=== PATIENT | male | born 1985 | race African-American/Black ===

== ENCOUNTER 2023-06-12 09:20 | Emergency (ER) | payer OTHER ==
[~2023-06-12] VITALS: Ht 162.6 cm; Wt 63.8 kg
[2023-06-12] VITALS (7 sets, daily range): BP systolic 112–131; BP diastolic 75–93
[2023-06-12] MEDS ORDERED: PROCTO-MED HC2.5 % PR (11:11)
== END 2023-06-12 11:26 | disposition home or self-care (01) | DRG 395 ==
LOC: ED 09:20
DX: K64.9 Unspecified hemorrhoids (principal)